=== PATIENT | female | born 2000 | race African-American/Black ===

== ENCOUNTER 2021-06-24 17:57 | Emergency (ER) | payer OTHER ==
[~2021-06-24] VITALS: Ht 157.5 cm; Wt 59.0 kg
[2021-06-24] MEDS ORDERED: HYDROXYZINE HCL25 M2 PO (20:37)
[2021-06-24 21:01] VITALS: BP 107/64
--- NOTE | 2021-06-26 06:50 | EKG ---
[address] [place] [address] ELECTROCARDIOGRAM REPORT Name: MARCIA WRIGHT Room #: LILLIAN Yan#: [id number] Admission: 06/24/21 Attend Phys: Discharge: 06/24/21 Date of : 89 Report #: [id number] [facility] ED Test Date: 2021-06-24 Test Time: 18:32:15 Pat Name: [facility] Department: Room: Gender: F Fnp: MAISHA : 2000 Requested By: Eleazar Griffin Order Number: [id number] MD: Gus Mazariegos Measurements Intervals [place] Rate: 115 P: 13 IA: 126 QRS: 58 QRSD: 90 T: -14 QT: 316 QTc: 437 Interpretive Statements Sinus tachycardia Atrial premature complexes Borderline T abnormalities, inferior leads No previous ECG available for comparison Electronically Signed On 06-26-2021 6:50:32 [employer] by Gus Mazariegos [email or web address] <ELECTRONICALLY SIGNED> By: Gus Mazariegos MD, [facility] 06/26/21 0650 1832 1832 Gus Mazariegos MD, FACC /EPI
== END 2021-06-24 21:02 | disposition home or self-care (01) ==
LOC: ER 17:57
DX: F41.9 Anxiety disorder, unspecified (principal); F12.10 Cannabis abuse, uncomplicated